=== PATIENT | female | born 1985 | race Caucasian/White ===

== ENCOUNTER 2017-10-18 10:03 | Outpatient (CLI) | payer OTHER | END 2017-10-18 15:13 | disposition home or self-care (01) | LOC: RX STUDY 10:03 | DX: N91.2 Amenorrhea, unspecified (principal); N93.9 Abnormal uterine and vaginal bleeding, unspecified; Q50.6 Other congenital malformations of fallopian tube and broad ligament ==

== ENCOUNTER → 2017-10-18 | Outpatient (CLI) | payer OTHER | END | disposition home or self-care (01) | LOC: SONOGRAMA 10:08 | DX: D25.1 Intramural leiomyoma of uterus (principal) ==